=== PATIENT | male | born 1950 | race Caucasian/White ===

== ENCOUNTER 2019-11-17 13:53 | Outpatient (CLI) | payer MEDICARE, SELFPAY ==
--- NOTE | 2019-11-17 14:48 | ECG_ITS ---
Measurements Intervals [place] Rate: 61 P: 49 [place]: 163 QRS: -13 QRSD: 102 T: 29 QT: 393 QTc: 396 Interpretive Statements SINUS RHYTHM BASELINE ARTIFACT- I, II, III, AVR, AVL, AVF BORDERLINE ECG Electronically Signed On 11-17-2019 15:45:36 [employer]ACH[employer]DER by Navid Valdivia D.O.
[2019-11-17 15:10] LABS: Add Urine Microscopic? NO; Appearance Urine Clear (Clear); Bilirubin Urine Negative (Negative); Blood Urine Negative (Negative); Color Urine Yellow (Yellow); Glucose Urine UA Negative (Negative); Ketones Urine Negative (Negative); Leukocyte Esterase Ur Negative LEU/UL (Negative); Nitrate Urine Negative (Negative); Protein Urine Negative (Negative); Specific Grav Ur 1.019 (1.001-1.035); Urobilinogen Urine Negative mg/dL (<2.0)
[2019-11-17 15:17] LABS: Urine Cotinine NEGATIVE
[2019-11-17 15:18] LABS: INR 0.9; Prothrombin Time 11.5 Seconds (11.1-14.7)
[2019-11-17 15:19] LABS: Partial Thromboplastin Time 26.9 SECONDS (22.3-36.8)
[2019-11-17 15:20] LABS: Albumin Level 4.2 g/dL (3.5-5.1); Blood Urea Nitrogen 21 mg/dL (9-20); Calcium 9.4 mg/dL (8.4-10.2); Carbon Dioxide 30 mmol/L (22-30); Chloride 99 mmol/L (98-107); Estimated Glomerular Filt Rate 55; Glucose 92 mg/dL (75-110); Potassium 4.3 mmol/L (3.4-5.0); Sodium 140 mmol/L (137-145)
[2019-11-17 15:22] LABS: Basophils Absolute Auto 0.1 K/mm3 (0.0-0.1); Basophils Percent Auto 0.9 % (0.2-1.2); Eosinophils Absolute Auto 0.1 K/mm3 (0-0.3); Eosinophils Percent Auto 1.9 % (0-4.4); Hematocrit 43.8 % (42.0-52.0); Hemoglobin 14.7 g/dL (14.0-18.0); Immature Granulocyte Absolute 0.02 K/mm3 (0.00-0.031); Immature Granulocyte Percent A 0.3 % (0-0.5); Lymphocytes Absolute Auto 1.87 K/mm3 (0.9-3.2); Mean Corpuscular HGB Conc 33.6 g/dl (32-36); Mean Corpuscular Hemoglobin 31.5 pg (26-34); Mean Platelet Volume 9.8 fl (7.4-10.4); Monocytes Absolute Auto 0.7 K/mm3 (0.1-0.6); Monocytes Percent Auto 10.5 % (2.6-8.5); Neutrophils Absolute Auto 3.7 K/mm3 (1.3-6.7); Neutrophils Percent Auto 57.4 % (45.5-73.1); Platelet Count Result 261 k/mm3 (150-375); Red Blood Count 4.66 M/mm3 (4.6-6.20); Red Cell Distribution Width 12.6 % (11.5-14.5); White Blood Count 6.5 K/mm3 (4.5-10.0)
[2019-11-17 15:31] LABS: Hemoglobin A1C 5.6 % (<5.7)
== END 2019-11-17 13:54 | disposition home or self-care (01) ==
PROVIDERS: PCP Emergency Medicine; Visit Provider Orthopaedic Surgery
DX: Z01.810 Encounter for preprocedural cardiovascular examination (principal); Z01.812 Encounter for preprocedural laboratory examination; Z41.9 Encounter for procedure for purposes other than remedying health state, unspecified; M17.11 Unilateral primary osteoarthritis, right knee; E55.9 Vitamin D deficiency, unspecified; Z79.82 Long term (current) use of aspirin; Z79.899 Other long term (current) drug therapy
CPT/HCPCS: 36415; 80048; 80307; 81003; 82040; 83036; 85025; 85610; 85730; 87081; 93005

== ENCOUNTER 2019-12-01 14:36 | Inpatient (IN) | payer MEDICARE, SELFPAY ==
[2019-11-17 14:19] VITALS: BP 130/76; PULSE 62; RESP 20; TEMP 36.5; O2SAT 98; BMI 28.7
--- NOTE | 2019-11-25 08:18 | PM.IMHP ---
H&P: HPI History of Present Illness Chief complaint: Right DJD Knee Narrative: Knee Pain Patient is here for bilateral knee pain Involved knee: bilateral Onset: gradual Location of pain: medial and lateral Character: stabbing and throbbing Timing of pain: intermittent Exacerbated by: direct pressure, weight bearing, kneeling, squatting, stairs, rotational activities, prolonged activity, walking up stairs and walking down stairs Relieved by: elevation, rest and other (Tramadol ) Associated symptoms: Reports clicking and instability Chief Complaint Chief Complaint: see Reason for Visit (See HPI) Duration: months months: other (10 MONTHS ) Severity: moderate Associated signs and symptoms: symptoms reported: (SEE HPI) Exacerbating/relieving factors: relieving factors: (SEE HPI) Review of Systems Review of Systems: All systems reviewed & are unremarkable except as noted in HPI and below Constitutional: Constitutional: Denies headache(s) and Denies weakness Eyes: Eyes: Denies blurry vision, Denies change in vision and Denies loss of vision ENT: Denies dizziness, Denies dry mouth, Denies headache(s) and Denies nasal congestion Cardiovascular: Cardiovascular: Denies chest pain, Denies syncope, Denies leg edema and Denies dyspnea on exertion Respiratory: Respiratory: Denies cough and Denies dyspnea on exertion Gastrointestinal: Gastrointestinal: Denies abdominal pain, Denies constipation and Denies diarrhea Genitourinary: Genitourinary: Denies urinary frequency Musculoskeletal: Musculoskeletal: Reports as per HPI and Denies numbness Integumentary/Breasts: Skin/Breast: Reports system reviewed and no additional complaints, except as docu Neurologic: Denies dizziness, Denies syncope, Denies headache(s), Denies loss of vision, Denies numbness and Denies weakness Psychiatric: Psychiatric: Reports no additional psychiatric complaints Endocrine: Endocrine: Reports no additional endocrine complaints Hematologic/Lymphatic: Hematologic/Lymphatic: Reports no additional hematologic/lymphatic complaints [facility] Past Medical History Medical History Arthritis Vision abnormalities Vitamin D deficiency disease Surgical History Surgical History H/O arthroscopy of right knee History of arthroscopy of right shoulder History of hand surgery History of hip surgery Family History Family History Mother Cerebrovascular accident, Onset Age: 79 Sibling Family history of pancreatic cancer, Onset Age: 57 Other Arthritis Social History Social History Smoking status: Never smoker Alcohol intake: never Meds Home Medications and Allergies Home Medications Medication Instructions Recorded Confirmed Type allopurinol 100 mg tablet 100 mg PO DAILY 09/10/19 11/17/19 History aspirin 81 mg tablet,delayed 81 mg PO BID tablet 09/10/19 11/17/19 History release cholecalciferol (vitamin D3) 50 2,000 unit PO DAILY 09/10/19 11/17/19 History mcg (2,000 unit) tablet tramadol 50 mg tablet 50 mg PO Q6H PRN #30 tablet 10/04/19 11/17/19 Rx Allergies Allergy/AdvReac Type Severity Reaction Status Date / Time No Known Allergies Allergy Verified 11/17/19 14:09 Exam Narrative: Exam Narrative: Extrem General: Yes normal to inspection, Yes capillary refill normal, Yes no calf tenderness, No cyanosis, No edema, Yes Limp noted and No muscle atrophy Right lower extremity: normal to inspection, normal capillary refill, no joint enlargement and knee Details: normal to inspection, tenderness Location: medial joint line, swelling (GENERALIZED), normal ROM, abnormal ROM Details: pain with active ROM during and pain with passive ROM during, knee ligament exam normal, Varsha's Test and crepitus; Negative
[2019-12-01] VITALS (9 sets, daily range): BP systolic 108–131; BP diastolic 60–87; PULSE 58–76; RESP 12–20; TEMP 36.5–36.7; O2SAT 94–100; BMI 32.4
--- NOTE | ~2019-12-01 | XR_ITS ---
EXAMINATION: XR knee RT 2V DATE: 12/01/2019 13:51 BLANKET INSPECTOR INDICATION: Right total knee arthroplasty TECHNIQUE: 2 views right knee FINDINGS: There is a right total knee arthroplasty in expected position. Subcutaneous gas with fluid and air in the joint and overlying skin rosa elena are consistent with recent surgery. No evidence of p eriprosthetic fracture. IMPRESSION: 1. Recent right total knee arthroplasty. Reviewed, dictated and finalized at location B. KET INSPECTOR
[2019-12-01] MEDS: LACTATED RINGERS 1,000 ML 30 ML IV CONT ×2 (09:05→13:34)
--- NOTE | 2019-12-01 10:10 | WPDANESEPPF ---
Anes - Initial Pre Proc Eval Procedure: Operation Date: 12/01/19 10:30 Proposed Procedures p Right Total Knee Arthroplasty - Bridger Painting MD Date/Time: 12/01/19 10:10 Surgeon: Bridger Painting MD Pre Op Diagnosis: Right DJD Knee Patient Data Age: 69 Gender: M Height: 1.84 m Weight: 94.6 kg Last Vital Signs Temp 36.5 C 12/01/19 09:01 Pulse 74 12/01/19 09:01 Resp 20 12/01/19 09:01 BP 129/73 12/01/19 09:01 Pulse Ox 98 12/01/19 09:01 Allergies Allergy/AdvReac Type Severity Reaction Status Date / Time No Known Allergies Allergy Verified 12/01/19 09:20 Home Medications Medication Instructions Recorded Confirmed Type allopurinol 100 mg tablet 100 mg PO DAILY 09/10/19 12/01/19 History aspirin 81 mg tablet,delayed 81 mg PO BID tablet 09/10/19 12/01/19 History release cholecalciferol (vitamin D3) 50 2,000 unit PO DAILY 09/10/19 12/01/19 History mcg (2,000 unit) tablet tramadol 50 mg tablet 50 mg PO Q6H PRN #30 tablet 10/04/19 12/01/19 Rx Patient hx anesthesia problems: none Family hx anesthesia problems: none PMFSH Past Medical History Medical History Arthritis Vision abnormalities Vitamin D deficiency disease Surgical History Surgical History H/O arthroscopy of right knee History of arthroscopy of right shoulder History of hand surgery History of hip surgery Family History Family History Mother Cerebrovascular accident, Onset Age: 79 Sibling Family history of pancreatic cancer, Onset Age: 57 Other Arthritis Social History Social History Smoking status: Never smoker Alcohol intake: never Anes - Eval Final PreProcedure Day of Procedure 12/01/19 10:10 Patient weight: overweight Heart: regular rate and rhythm Lungs: clear to auscultation and normal air movement Airway: Mallampati scale class II Neurological: alert and oriented Last oral intake: >/= 8 hours ASA classification: II Emergent: no Anesthetic plan: proceed Anesthesia type and monitoring: general LMA and standard monitoring Other findings: femoral nerve block Informed Consent: The patient's anesthetic plan and its attendant risks and benefits were discussed with the patient/family/POA. Questions were solicited and answers provided to the satisfaction of the patient/family/POA.
--- NOTE | 2019-12-01 10:10 | WPDANESPNB ---
Anes - Peripheral Nerve Block Date/Time: 12/01/19 10:10 I have discussed with the patient/family/POA the placement of a peripheral nerve block for post-operative pain management, including associated risks, benefits, complications, and side effects. Alternative methods of post-operative analgesia were detailed. Questions were solicited and answers provided to the satisfaction of the patient/family/POA. Time-Out: A pre-procedural Time-Out was completed immediately before starting the procedure and confirmed: Patient Identification, Site, Procedure, Patient Position and the Availability of Requisite Equipment. Clinical Indications: Acute post-operative pain management requested by the operative surgeon. Nerve Block Insertion Note Anes-nerve block: adductor canal right Patient position: supine Skin prep: chlorhexidine Needle: 22 gauge, stimulating, insulated echogenic needle. Needle length: 80 mm Technique: nerve stimulation lost at (mA) (0.3) and ultrasound Injectate: bupivacaine 0.5% with epi 5 mcg/ml (30cc) Observations: tolerated well Complications: none Procedure start time:: 1113 Procedure end time:: 1115
--- NOTE | 2019-12-01 11:28 | WPDHPUPDATE1 ---
History and Physical Update Update Date/Time: 12/01/19 11:28 History and Physical has been reviewed, including an updated exam of the patient. There are NO changes in the patient's condition. Risks, benefits, and alternatives have been discussed and questions answered. Patient agrees to proceed with procedure.
[2019-12-01] MEDS: ceFAZolin 2 GM/D5W 50 ML 2 GM/50 ML BAG IVPB ×2 (11:31→18:39)
[2019-12-01] MEDS: IBUPROFEN IV 800 MG/200 ML 800 MG/200 ML BAG 400 MG IVPB (11:56)
--- NOTE | 2019-12-01 13:36 | PM.OP ---
Procedure Note - Brief Procedure Note - Brief Date of procedure: 12/01/19 Pre-op diagnosis: Right DJD Knee Post-op diagnosis: same Procedure performed: R TKA Anesthesia: GETA Surgeon: Bridger Painting MD Estimated blood loss (mL): 100 Complications: No immediate complications Condition: stable Disposition: PACU
--- NOTE | 2019-12-01 13:55 | SUR.PHASEI ---
1345 2 VIEWS OF XRAY TAKEN OF RT KNEE AT BEDSIDE.
--- NOTE | 2019-12-01 14:42 | ADMGEN ---
This patient, Kaden Sifuentes ., was admitted to -. Patient/family oriented to hospital policies and general routines including ID bracelet, bed and alarms, visiting hours, pain management, procedures, bathroom and other care routines, personal items, smoking policy, room service/diet, and visiting hours. Valuables list has been completed. Information on how to activate the Rapid Response Team has been discussed. Patient/Family are encouraged to report perceived risks to care and to ask questions if they do not understand what they are told or what they should do.
--- NOTE | 2019-12-01 15:15 | OP_ITS ---
DATE OF PROCEDURE: 12/01/2019 PREOPERATIVE DIAGNOSIS: Right knee DJD. POSTOPERATIVE DIAGNOSIS: Right knee DJD. PROCEDURE: Right total knee arthroplasty. ANESTHESIA: General. COMPLICATIONS: None. INDICATIONS: This is a 69-year-old gentleman with end-stage right knee DJD. He was indicated for right total knee arthroplasty. DESCRIPTION OF PROCEDURE: The patient was taken to the operating room in stable condition and placed in supine position. General anesthesia was induced and the right lower extremity was prepped and draped sterilely from the toes to the thigh. A midline skin incision was made. Medial parapatellar arthrotomy was made. Patella was everted. There was arthrosis in both medial and lateral components. There was minimal in the patellofemoral component. An IM nikhil was placed in the femoral canal. Distal femoral cutting block was placed. The distal femur was cut at 5 degrees of valgus removing approximately 9 mm of bone from the high side. Then, the knee was sized to 72.5 and then a cutting block was placed in line with Whites[place] line with the transepicondylar axis. The anterior, posterior, and chamfer cuts were made to the femur. The cuts were excellent. Next, an IM nikhil was placed in the tibia and a transtibial cut was made along the long axis of the tibia removing approximately 10 mm of bone from the high side. The tibia was planed to a smooth surface. A 79 tibial trial component was placed in line with the 1/3rd medial aspect of the tibial tubercle and then, a 72.5 femoral trial was placed and then, a 10 CR poly trial. The knee came out to full extension. There was good tracking of the patella without any tilt. There was good stability in varus-valgus stress in both flexion and extension. There was no excessive rollback in flexion and the patella tracked without any tilt. The trial components were removed and then, a Biomet 79 tibial component and a 72.5 femoral component were both press-fit into the knee and the fit was excellent on both sides. Then, a 10 poly CR component was locked into place. The patella tracked without any tilt. The tourniquet was deflated. Bleeders were cauterized. The knee was taken through range of motion, found to be very stable with varus and valgus stress. There was good anterior-posterior stability as well. The patella tracked without any tilt. There was no excessive rollback in flexion. The knee joint then was irrigated with 500 cc of sterile Betadine sterile water during 3 minutes, and then, the fascial layer was approximated with #1 Vicryl suture, subcutaneous 2-0 Vicryl, and the skin was approximated with rosa elena. Wound was washed, placed a sterile dressing. The patient then was extubated and sent to Recovery. Norman I MT: Sandy
[2019-12-01] MEDS: SODIUM CHLORIDE 0.9% IV 1,000 ML 125 ML IV CONT (15:35)
[2019-12-01] MEDS: ONDANSETRON INJ 4 MG/2 ML VIAL IV PUSH ×2 (16:16→20:37)
[2019-12-01] MEDS: CELECOXIB 200 MG CAPSULE PO (18:38)
[2019-12-01] MEDS: DOCUSATE SODIUM 100 MG CAPSULE PO (18:38)
[2019-12-01] MEDS: FAMOTIDINE 20 MG TABLET PO (21:25)
--- NOTE | 2019-12-01 22:35 | PM.IMCN ---
Assessment and Plan Assessment and plan (1) H/O arthroscopy of right knee: Code(s): Z98.890 - Other specified postprocedural states Status: Acute Assessment and Plan: Please see operative note per Dr. Painting. Postop management per Dr. Painting. Pain management per Dr. Painting. DVT prophylaxis per Dr. Painting. Dressing is dry intact to the right knee with a large Band-Aid no drainage. Elmer wrap to the right lower SCDs. Ten toe to the left. (2) Gout: Code(s): M10.9 - Gout, unspecified Status: Chronic Assessment and Plan: Continue with allopurinol. HPI Data of Consult Consult date: 12/01/19 Requesting Physician: Bridger Painting MD Primary Care Provider: Elbert Block MD Consult Narrative Narrative: Kaden Sifuentes Jr. is a 69 year old male who has severe degenerative joint disease. He has arthritis in both knees. He has been receiving injections to both knees. The patient stated that they work for while and then stopped working. He had been using pain medication and anti-inflammatories. He has had difficulty with ambulation walking up steps. The pain became intense and felt like it was time to follow through with a knee replacement. Patient had a right total knee arthroplasty per Dr. Painting today. The patient did go to the joint class and had a nerve block. He is starting to have some discomfort in that right knee. He has been sitting up in a chair without difficulty. Please see operative report approximately estimated blood loss was 1 and 100 mL. Date of service is 12/01/2019. I thank Dr. Painting for this consultation. Review of Systems Review of Systems: Narrative: Patient stated he has a history of gout but has not had any flare-ups recently. All systems reviewed & are unremarkable except as noted in HPI and below Constitutional: Constitutional: Reports as per HPI and Reports no additional constitutional complaints Eyes: Eyes: Reports as per HPI and Reports no additional eye complaints ENT: Reports system reviewed and no additional complaints, except as documented and Reports Normal hearing present Cardiovascular: Cardiovascular: Reports no additional cardiovascular complaints Respiratory: Respiratory: Reports no additional respiratory complaints and Reports no additional respiratory complaints Gastrointestinal: Gastrointestinal: Reports as per HPI and Reports no additional gastrointestinal complaints Musculoskeletal: Musculoskeletal: Reports no additional musculoskeletal complaints Integumentary/Breasts: Skin/Breast: Reports system reviewed and no additional complaints, except as docu and Reports as per HPI Neurologic: Reports system reviewed and no additional complaints, except as documented, Reports as per HPI and Reports Normal hearing present Psychiatric: Psychiatric: Reports no additional psychiatric complaints and Reports as per HPI Endocrine: Endocrine: Reports no additional endocrine complaints Hematologic/Lymphatic: Hematologic/Lymphatic: Reports no additional hematologic/lymphatic complaints Allergic/Immunologic: Allergic/Immunologic: Reports no additional allergic/immunologic complaints [facility] Past Medical History Medical History (Updated 12/01/19 @ 22:39 by Sophie Parada NP) Arthritis Fracture of tibia or fibula following insertion of orthopedic implant, joint prosthesis, or bone plate, unspecified leg Gout Vision abnormalities Vitamin D deficiency disease Surgical History Surgical History (Updated 12/01/19 @ 22:39 by Sophie Parada NP) H/O arthroscopy of right knee History of arthroscopy of right shoulder Rotator cuff repair History of hand surgery History of hip surgery Tumor removed and he had 20 radiation treatments Family History Family History (Updated 12/01/19 @ 22:40 by Sophie Parada NP) Mother Cerebrovascular accident, Onset Age: 79 Sibling Family history of pancreatic cancer, Onset Age:
[2019-12-02 02:00] VITALS: BP 118/58; PULSE 71; RESP 18; TEMP 36.8; O2SAT 96
[2019-12-02] MEDS: SODIUM CHLORIDE 0.9% IV 1,000 ML 125 ML IV CONT (02:52)
[2019-12-02] MEDS: ceFAZolin 2 GM/D5W 50 ML 2 GM/50 ML BAG IVPB (02:55)
[2019-12-02 06:00] VITALS: BP 124/54; PULSE 67; RESP 16; TEMP 36.4; O2SAT 96
[2019-12-02 06:25] LABS: Basophils Percent Auto 0.3 % (0.2-1.2); Eosinophils Absolute Auto 0.1 K/mm3 (0-0.3); Eosinophils Percent Auto 0.6 % (0-4.4); Hematocrit 36.1 % (42.0-52.0); Hemoglobin 12.2 g/dL (14.0-18.0); Immature Granulocyte Absolute 0.05 K/mm3 (0.00-0.031); Immature Granulocyte Percent A 0.5 % (0-0.5); Lymphocytes Absolute Auto 1.81 K/mm3 (0.9-3.2); Lymphocytes Percent Auto 19.4 % (18.3-44.2); Mean Corpuscular HGB Conc 33.8 g/dl (32-36); Mean Corpuscular Hemoglobin 31.4 pg (26-34); Mean Platelet Volume 9.4 fl (7.4-10.4); Monocytes Absolute Auto 0.9 K/mm3 (0.1-0.6); Monocytes Percent Auto 9.3 % (2.6-8.5); Neutrophils Absolute Auto 6.5 K/mm3 (1.3-6.7); Neutrophils Percent Auto 69.9 % (45.5-73.1); Platelet Count Result 204 k/mm3 (150-375); Red Blood Count 3.88 M/mm3 (4.6-6.20); Red Cell Distribution Width 12.6 % (11.5-14.5); White Blood Count 9.3 K/mm3 (4.5-10.0)
[2019-12-02 06:38] LABS: Blood Urea Nitrogen 17 mg/dL (9-20); Calcium 7.9 mg/dL (8.4-10.2); Carbon Dioxide 28 mmol/L (22-30); Chloride 101 mmol/L (98-107); Estimated CRCL calculation 74 ml/min; Estimated Glomerular Filt Rate > 60; Glucose 105 mg/dL (75-110); Sodium 138 mmol/L (137-145)
[2019-12-02] MEDS: FAMOTIDINE 20 MG TABLET PO (08:23)
[2019-12-02] MEDS: CELECOXIB 200 MG CAPSULE PO ×2 (08:23→16:34)
[2019-12-02] MEDS: DOCUSATE SODIUM 100 MG CAPSULE PO ×2 (08:23→16:34)
[2019-12-02] MEDS: ASPIRIN 325 MG ENTERIC TABLET 650 MG PO (08:23)
--- NOTE | 2019-12-02 08:58 | PM.IMPN ---
Progress Note: A&P Assessment and Plan (1) H/O arthroscopy of right knee: Code(s): Z98.890 - Other specified postprocedural states Status: Acute Assessment and Plan: Please see operative note per Dr. Painting. Postop management per Dr. Painting. Pain management per Dr. Painting. DVT prophylaxis per Dr. Painting. Postop day 1-doing well with PT and OT. He believes his nerve block is still in place as he has not had much pain since surgery. Currently does having some pressure symptoms. He is feeling well on believes he will be discharged this afternoon by orthopedic surgery. At this time the patient is cleared from medical standpoint since his vital signs, morning labs are all stable. At the patient follow-up with his primary care provider as needed for any issues or questions after discharge. (2) Gout: Code(s): M10.9 - Gout, unspecified Status: Chronic Assessment and Plan: Patient refuses allopurinol this morning stating that he has not taken it for 1 week prior to his surgery. I told him to refer to Dr. Painting orders primary care provider about restarting this medication during the healing process. Time Spent With Patient Time with patient: 25 - 35 minutes Subjective Date/time seen: 12/02/19 08:58 Interval history: Date of service 12/02/2019: The patient reports feeling pretty well today, day 1 postop. He received tramadol this morning prior to walking with therapy down the [place] and currently he has some pressure to his right knee. He states it feels like something is sitting on his right knee. He otherwise felt good walking with therapy and believes he will be going home this afternoon. He states he has not been taking his gout medication for the last 1 week prior to his surgery, and he has not had any symptoms of having a gout flare. He denies any chest pain, shortness of breath, fever, chills, cough, sore throat, nausea, vomiting, diarrhea, calf pain, leg swelling or any other symptoms at this time. He is passing gas but has not had a bowel movement since surgery at this time. Review of Systems Review of Systems: All systems reviewed & are unremarkable except as noted in HPI and below Exam Narrative: Exam Narrative: General: 69-year-old man sitting up in bed eating his breakfast and talking to his . Appears comfortable. In no acute distress. Skin: No jaundice or cyanosis. Good skin turgor. Neck: Full range of motion. Supple. Respiratory: Lungs are clear to auscultation bilaterally. No bony chest wall tenderness. Cardiovascular: The heart has a regular rate and rhythm without murmur. Lower extremities: Right leg has Elmer wrapped from distal foot all the way up to proximal thigh. Unable to visualize the right knee surgical site. Left leg with no lower extremity edema. Distal pulses are easily palpated. No calf tenderness to palpation. Able to move bilateral toes without any issues. Gastrointestinal: The abdomen is soft, nontender and nondistended with active bowel sounds. Psychiatric: Lucid and oriented. Memory intact. Neurologic: No focal deficits. Speech is clear. No facial drooping. Objective Data Vital Signs Vital Signs: Vital Signs - 24 hr 12/01/19 09:01 12/01/19 13:34 12/01/19 13:45 Temperature 97.7 F 97.9 F Pulse Rate 74 76 66 Respiratory Rate 20 14 14 Blood Pressure 129/73 131/77 118/87 Pulse Oximetry 98 100 100 12/01/19 14:00 12/01/19 14:15 12/01/19 14:30 Temperature 98.0 F Pulse Rate 66 67 66 Respiratory Rate 16 12 12 Blood Pressure 108/77 115/78 108/77 Pulse Oximetry 97 99 96 12/01/19 14:45 12/01/19 15:00 12/01/19 22:00 Temperature 98.0 F Pulse Rate 64 72 70 Respiratory Rate 16 18 18 Blood Pressure 114/76 116/78 119/60 Pulse Oximetry 96 94 95 12/02/19 02:00 12/02/19 06:00 Temperature 98.2 F 97.6 F Pulse Rate 71 67 Respira
[2019-12-02] MEDS: TRAMADOL HCL 50 MG TABLET PO ×2 (10:43→16:35)
[2019-12-02] MEDS: ceFAZolin SODIUM 1 GM VIAL 2 GM IM (12:15)
[2019-12-02] MEDS: DIAZEPAM 5 MG TABLET PO (12:16)
--- NOTE | 2019-12-02 14:00 | WPDANESPN ---
Anes - Prog Note Post-Op Date/Time: 12/02/19 14:00 Cardiovascular status: normal Respiratory status: normal Airway patency: baseline Mental status: baseline Post-Op hydration status: normal Vital Signs: Last Vital Signs Temp 36.4 C 12/02/19 06:00 Pulse 67 12/02/19 06:00 Resp 16 12/02/19 06:00 BP 124/54 L 12/02/19 06:00 Pulse Ox 96 12/02/19 06:00 I/O: Intake & Output 12/01/19 12/02/19 12/02/19 23:59 07:59 15:59 Intake Total 1290 450 Output Total 400 Balance 1290 50 Laboratory Tests 12/02/19 06:00 12/02/19 06:00 12/02/19 12/02/19 06:00 06:00 WBC 9.3 RBC 3.88 L Hgb 12.2 L Hct 36.1 L MCV 93.0 MCH 31.4 MCHC 33.8 RDW 12.6 Plt Count 204 MPV 9.4 Immature Gran % (Auto) 0.5 Neut % (Auto) 69.9 Lymph % (Auto) 19.4 Perkins % (Auto) 9.3 H Eos % (Auto) 0.6 Baso % (Auto) 0.3 Lymph # (Auto) 1.81 Perkins # (Auto) 0.9 H Eos # (Auto) 0.1 Baso # (Auto) 0.0 Abs Immat Gran (auto) 0.05 H Absolute Neuts (auto) 6.5 Absolute Nucleated RBC 0.0 Nucleated RBC % 0.0 Sodium 138 Potassium 4.0 Chloride 101 Carbon Dioxide 28 BUN 17 Creatinine 1.10 Estim Creat Clear Calc 74 Estimated GFR > 60 Glucose 105 Calcium 7.9 L Post-procedural complaints: none Patient Feedback: Patient satisfied with anesthetic care.
[2019-12-02 16:00] VITALS: BP 115/62; PULSE 75; RESP 16; TEMP 36.7; O2SAT 97
--- NOTE | 2019-12-03 11:35 | P.DS_ITS ---
DS: Diagnosis Admitting Diagnosis Admitting Diagnosis: Encounter for procedure for purposes other than remedying h [facility] state, unspecified DS: Summary Time Spent with Patient Time attestation: Total time spent providing and/or coordinating discharge services: 15 MIN Discharge Plan Discharge Consulting providers: Gennaro Grimaldo ; Ana Stahl Discharging Clinician: Bridger Painting Patient Disposition: Home Health Service Activity: may shower and as tolerated Diet: regular Wound Care Instructions: other - see discharge instructions Discharge Instructions: Per Care Coordination, patient to discharge with [facility] [phone]. [facility] nurse to change dressing in 5 days. Please send dressing home with patient. Patient Instructions: Antibiotic Form, Pain Management in Older Adults (DC), Knee Replacement (DC) Stand Alone Forms: General Discharge Information Follow-up/Referrals: Bridger Painting MD [Physician] - 3 Weeks Discharge Medications: New aspirin 325 mg Tablet,Delayed Release (Dr/Ec) 650 mg PO DAILY RF: 0 Continued tramadol 50 mg tablet 50 mg PO Q6H PRN (Reason: pain) Qty: 30 RF: 0 cholecalciferol (vitamin D3) 2,000 unit tablet 2,000 unit PO DAILY RF: 0 allopurinol 100 mg tablet 100 mg PO DAILY RF: 0 Held aspirin 81 mg tablet,delayed release (DR/EC) 81 mg PO BID RF: 0 Hold Instructions: Resume on 12/23/19. resume after 650 mg dose complete Date of admission: 12/01/19 14:36 Primary Care Provider: Elbert Block Admitting Provider: Bridger Painting Discharge Date/Time: 12/02/19 19:30 Attending physician on admission: Bridger Painting Quality VTE Prophylaxis VTE prophylaxis: pharmacologic ordered
--- NOTE | 2019-12-23 13:51 | P.DS_ITS ---
DS: Diagnosis Admitting Diagnosis Admitting Diagnosis: Bilateral primary osteoarthritis of knee Discharge Diagnosis (1) DJD (degenerative joint disease) of knee: Qualifiers: Osteoarthritis type: primary Laterality: bilateral Qualified Code(s): M17.0 - Bilateral primary osteoarthritis of knee Code(s): M17.10 - Unilateral primary osteoarthritis, unspecified knee Status: Acute DS: Summary Time Spent with Patient Time attestation: Total time spent providing and/or coordinating discharge services: Discharge Plan Discharge Consulting providers: Ana Stahl ; Gennaro Grimaldo ; Sophie Parada ; Isai Jacinto Discharging Clinician: Bridger Painting Patient Disposition: Home Health Service Activity: may shower and as tolerated Diet: regular Wound Care Instructions: other - see discharge instructions Discharge Instructions: Per Care Coordination, patient to discharge with [facility] [phone]. [facility] nurse to change dressing in 5 days. Please send dressing home with patient. Patient Instructions: Antibiotic Form, Pain Management in Older Adults (DC), Knee Replacement (DC) Stand Alone Forms: General Discharge Information Follow-up/Referrals: Bridger Painting MD [Physician] - 3 Weeks Discharge Medications: New aspirin 325 mg Tablet,Delayed Release (Dr/Ec) 650 mg PO DAILY RF: 0 Continued tramadol 50 mg tablet 50 mg PO Q6H PRN (Reason: pain) Qty: 30 RF: 0 cholecalciferol (vitamin D3) 2,000 unit tablet 2,000 unit PO DAILY RF: 0 allopurinol 100 mg tablet 100 mg PO DAILY RF: 0 Held aspirin 81 mg tablet,delayed release (DR/EC) 81 mg PO BID RF: 0 Hold Instructions: Resume on 12/23/19. resume after 650 mg dose complete No Action celecoxib [Celebrex] 200 mg capsule 200 mg PO BID Qty: 60 RF: 0 hydrocodone-acetaminophen [Chacon] 5-325 mg tablet 1 tablet PO Q8H PRN (Reason: pain) Qty: 30 RF: 0 Date of admission: 12/01/19 14:36 Primary Care Provider: Elbert Block Admitting Provider: Bridger Painting Discharge Date/Time: 12/02/19 19:30 Attending physician on admission: Bridger Painting Quality VTE Prophylaxis VTE prophylaxis: pharmacologic ordered
== END 2019-12-02 19:30 | disposition home health service (06) | DRG 470 ==
LOC: ANH3MEDSUR 15:24
PROVIDERS: Admitting Provider Orthopaedic Surgery; PCP Emergency Medicine; Visit Provider Orthopaedic Surgery
PROC: 0SRC0JA Replacement of Right Knee Joint with Synthetic Substitute, Uncemented, Open Approach (ICD-10-PCS; CPT 27447; principal; 2019-12-01 10:30)
DX: M17.0 Bilateral primary osteoarthritis of knee (principal); E55.9 Vitamin D deficiency, unspecified; M1A.9XX0 Chronic gout, unspecified, without tophus (tophi)
CPT/HCPCS: 36415; 73560; 80048; 85025; 86850; 86900; 86901; 97110; 97116; 97161; 97165; A9270; C1713; C1776; J0171; J0690; J1170; J1741; J2250; J2270; J2405; J2704; J2795; J3010; J7030; J7120

== ENCOUNTER 2022-02-04 15:28 | Outpatient (CLI) | payer MEDICARE, SELFPAY ==
--- NOTE | ~2022-02-04 | XR_ITS ---
XR foot RT min 3V DATE: 02/04/2022 16:01 INDICATION: Chronic third and fourth metatarsophalangeal area pain. No injury. TECHNIQUE: 4 views COMPARISON: None FINDINGS: There is severe osteoarthritis at the first metatarsophalangeal joint. There is osteoarthri tic change at some of the interphalangeal joints. Minimal posterior calcaneal enthesopathy. No fracture or dislocation, periosteal reaction or bone destruction is detected. IMPRESSION: Osteoarthritis Minimal posterior calcaneal enthesopathy. Reviewed, dictated and finalized at location B.
--- NOTE | ~2022-02-04 | XR_ITS ---
EXAM: XR knee RT 2V HISTORY: M25.561 - KNEE SWELLING,NO INJURY PAIN X 2 YRS COMPARISON: 11/05/2021. FINDINGS: Osteopenia. No fracture or dislocation. Uncomplicated appearing right total knee arthropla sty. Large volume joint fluid, unchanged. Stable dystrophic ossification and enthesopathy at the acevedo lla. IMPRESSION: No acute osseous finding in the right knee. Uncomplicated right knee arthroplasty. Stable large joint effusion. Reviewed, dictated and finalized at location K. IMPRESSION: No acute osseous finding in the right knee. Uncomplicated right knee arthroplas ty. Stable large joint effusion.
== END 2022-02-04 15:29 | disposition home or self-care (01) ==
LOC: ANHIMG 15:40
PROVIDERS: PCP Emergency Medicine; Visit Provider Emergency Medicine
DX: M19.071 Primary osteoarthritis, right ankle and foot (principal); M77.31 Calcaneal spur, right foot; M25.461 Effusion, right knee
CPT/HCPCS: 73560; 73630

== ENCOUNTER 2023-09-05 13:35 | Outpatient (CLI) | payer MEDICARE, SELFPAY ==
--- NOTE | ~2023-09-05 | XR_ITS ---
EXAMINATION: XR ankle LT 2V DATE: 09/05/2023 13:55 INDICATION: Chronic left ankle pain. TECHNIQUE: 2 views of left ankle were obtained. COMPARISON: Left ankle radiographs 02/08/2017 FINDINGS: There is an old healed fracture of distal tibia with internal fixation with plates and scre ws. There is an old healed fracture of distal fibula. There is moderate ankle joint osteoarthritis. T here is mild midfoot osteoarthritis. There is an enthesophyte at posterior aspect of calcaneal tubero sity. IMPRESSION: 1. Polyarticular osteoarthritis. Reviewed, dictated and finalized at location E. SALVAGER
== END 2023-09-05 13:36 | disposition home or self-care (01) ==
PROVIDERS: PCP Emergency Medicine; Visit Provider Emergency Medicine
DX: M19.072 Primary osteoarthritis, left ankle and foot (principal)
CPT/HCPCS: 73600